=== PATIENT | male | born 1970 | race Two or more races ===

== ENCOUNTER 2019-05-13 12:34 | Inpatient (IN) | payer OTHER ==
[~2019-05-13] VITALS: Ht 162.6 cm; Wt 61.2 kg
[2019-05-24] MEDS ORDERED: OXYC1TAB9 PO (08:52)
[2019-05-24] MEDS ORDERED: XARELTO10 MG PO (08:57)
[2019-05-24] MEDS ORDERED: GABAPENTIN100 MG PO (09:00)
[2019-05-24] MEDS ORDERED: NORFLEX100MG PO (09:00)
== END 2019-05-24 15:55 | DRG 470 ==
LOC: SURG 05-15 08:00 → O/R 05-21 05:00 → SURG 05-21 07:00
PROVIDERS: ADMIT Orthopaedic Surgery
PROC: 0SRC0J9 Replacement of Right Knee Joint with Synthetic Substitute, Cemented, Open Approach (ICD-10-PCS; principal; 2019-05-21 07:00)
DX: M17.11 Unilateral primary osteoarthritis, right knee (principal); D62 Acute posthemorrhagic anemia; Z96.651 Presence of right artificial knee joint